=== PATIENT | male | born 1995 | race Caucasian/White ===

== ENCOUNTER 2018-12-23 11:12 | Emergency (ER) | payer OTHER ==
[~2018-12-23] VITALS: Ht 177.8 cm; Wt 117.9 kg
[2018-12-23 11:18] VITALS: BP 135/91
--- NOTE | 2018-12-23 11:27 | NUR ---
PT AMB TO BED7
--- NOTE | 2018-12-23 11:33 | NUR ---
DR HIRSCH AT BEDSIDE
--- NOTE | 2018-12-23 11:33 | NUR ---
23 Y MALE BIB SELF C/O PUNCTURE WOUND TO PTS L PALM FROM DOG BITE EARLIER TODAY. PT WAS A [employer] MANJARREZ, VACCINATIONS UTD. PATIENT STATES HE WORKS FOR A [employer]. DENIES NUMBNESS OR TINGLINGING OR FEVER. PAIN 2/10. NO BLEEDING AT THIS TIME. WOUND APPROX 1 CM. CAN'T RECALL LAST TDAP. MED HX:ASTHMA
[2018-12-23] MEDS ORDERED: IBUPROFEN 800 MG TAB PO ONE (11:35)
--- NOTE | 2018-12-23 11:39 | NUR ---
XRAY AT BEDSIDE
[2018-12-23] MEDS ORDERED: BACITRACIN OINT 500 UNITS/GM PKT TP ONE (11:45)
--- NOTE | 2018-12-23 12:40 | NUR ---
PT DOES NOT WISH TO RELEASE ANY MORE INFORMATION ABOUT THE DOG NOR THE MANAGER CIVIL
[2018-12-23 12:45] VITALS: BP 131/90
--- NOTE | 2018-12-23 12:45 | NUR ---
Patient discharged with v/s stable. Written and verbal after care instructions given and explained. Patient alert, oriented and verbalized understanding of instructions. Ambulatory with steady gait. All questions addressed prior to discharge. ID band removed. Patient advised to follow up with PMD. Rx of AUGMENTIN AND IBUPROFEN given. Patient educated on indication of medication including possible reaction and side effects. Opportunity to ask questions provided and answered. PT INSTRUCTED TO ALTERNATE BETWEEN TYLENOL AND MOTRIN.
--- NOTE | 2018-12-23 14:43 | NUR ---
confirmed on fax machine
== END 2018-12-23 12:45 | disposition home or self-care (01) ==
LOC: MED 11:12
DX: S61.432A Puncture wound without foreign body of left hand, initial encounter (principal); W54.0XXA Bitten by dog, initial encounter; Y93.89 Activity, other specified; Y92.89 Other specified places as the place of occurrence of the external cause; Y99.8 Other external cause status
CPT/HCPCS: 73130; 90471; 90715; 99283; Q0092